=== PATIENT | male | born 1935 | race Caucasian/White ===

== ENCOUNTER 2019-07-20 07:32 | Day surgery (SDC) | payer MEDICARE ==
[~2019-07-20] VITALS: Ht 175.3 cm; Wt 83.4 kg
[2019-07-20] VITALS (9 sets, daily range): BP systolic 112–157; BP diastolic 48–89
[2019-07-20] MEDS ORDERED: diphenhydrAMINE 25mg capsule PO PRN (08:00)
[2019-07-20] MEDS ORDERED: normal saline 1,000 ML IV SCH (08:00)
[2019-07-20] MEDS ORDERED: LIDOcaine 1% (10mg/ml)w/preservative injection 20ml MDV ONE ×2 (08:51→09:44)
[2019-07-20] MEDS ORDERED: midazolam 2 mg/2 ml injection ONE ×3 (08:51→09:59)
[2019-07-20] MEDS ORDERED: fentaNYL/PF 50MCG/1 ML 2ML syringe ONE (08:51)
[2019-07-20] MEDS ORDERED: iohexol 350MG/ML 100ml bottle IV ONE (08:51)
[2019-07-20] MEDS ORDERED: iohexol 350 MG/ML 50ML vial IV ONE (08:51)
[2019-07-20 08:53] LABS: BASOPHILS % (AUTO) 0.8 % (0-1); EOSINOPHILS % (AUTO) 0.9 % (0-6); HEMATOCRIT 42.2 % (42.0-52.0); HEMOGLOBIN 14.8 g/dl (14.0-17.9); LYMPHOCYTES # (AUTO) 0.9 X10'3 (1.1-4.8); MEAN CORPUSCULAR HEMOGLOBIN 33.7 PG (27.0-31.0); MEAN CORPUSCULAR HGB CONC 35.1 g/dL (33.0-36.5); MEAN PLATELET VOLUME 7.8 FL (7.4-10.4); MONOCYTES # (AUTO) 0.3 X10'3 (0-0.9); MONOCYTES % (AUTO) 6.8 % (2-12); NEUTROPHILS # (AUTO) 3.2 X10'3 (1.8-7.7); NEUTROPHILS % (AUTO) 71.5 % (42-75); PLATELET COUNT 190 X10'3 (140-440); RED CELL DISTRIBUTION WIDTH 13.5 % (11.5-14.5); WHITE BLOOD COUNT 4.5 X10'3 (4.5-11.0)
--- NOTE | 2019-07-20 09:00 | NUR ---
MD Boothe cancelled PT/INR.
[2019-07-20 09:08] LABS: ANION GAP 8 (8-16); BLOOD UREA NITROGEN 14 MG/DL (7-18); BUN/CREATININE RATIO 14.9 (5.4-32.0); CALCIUM 8.7 MG/DL (8.5-10.1); CHLORIDE 108 MMOL/L (99-107); CREATININE 0.94 MG/DL (0.60-1.10); GLUCOSE 104 MG/DL (70-104); MAGNESIUM 1.8 MG/DL (1.5-2.4); POTASSIUM 3.9 MMOL/L (3.5-5.1); SODIUM 142 MMOL/L (135-145); TOTAL CARBON DIOXIDE 25.7 MMOL/L (24-32); eGFR 77 ML/MIN
[2019-07-20] MEDS ORDERED: [UNRECOGNIZED DRUG - REMARK] PO (09:16)
[2019-07-20] MEDS ORDERED: LISI-600 PO (10:01)
[2019-07-20] MEDS ORDERED: METF500T PO (10:01)
[2019-07-20] MEDS ORDERED: FLO0.4C PO (10:01)
[2019-07-20] MEDS ORDERED: NAPR220T67 PO (10:01)
[2019-07-20] MEDS ORDERED: METO50TA7 PO (10:01)
--- NOTE | 2019-07-20 12:40 | NUR ---
FemoStop removed from venous site in rt groin. VS stable as charted. ecchymosis present in inner rt thigh. pt pulses charted
== END 2019-07-20 14:05 | disposition home or self-care (01) ==
LOC: SSTAY O 07:32
PROVIDERS: ATTEND Internal Medicine Cardiovascular Disease
DX: I25.119 Atherosclerotic heart disease of native coronary artery with unspecified angina pectoris (principal); I34.0 Nonrheumatic mitral (valve) insufficiency; I10 Essential (primary) hypertension; E11.9 Type 2 diabetes mellitus without complications; Z79.899 Other long term (current) drug therapy; Z79.84 Long term (current) use of oral hypoglycemic drugs; Z85.820 Personal history of malignant melanoma of skin; Z98.890 Other specified postprocedural states
CPT/HCPCS: 36415; 80048; 82948; 83735; 85025; 93005; 93460; 99152; 99153; C1760; C1894; J1644; J2001; J2250; J3010; J7030; Q0163; Q9967; A4620; A6258